=== PATIENT | male | born 1975 | race Caucasian/White ===

== ENCOUNTER 2016-12-16 13:04 | Emergency (ER) | payer MEDICAID, OTHER ==
[~2016-12-16] VITALS: Ht 167.6 cm; Wt 83.5 kg
[2016-12-16 13:14] VITALS: Ht 167.6 cm; Wt 83.5 kg
[2016-12-16 14:52] LABS: ADD SCAN DIFF NO
[2016-12-16 15:09] LABS: BASOPHIL # 0.1 10^3/ul (0.0-0.1); BASOPHILS % 0.4 % (0.0-2.0); EOSINOPHILS # 0.3 10^3/ul (0.0-0.5); EOSINOPHILS % 2.1 % (0.0-7.0); HEMOGLOBIN 14.1 g/dl (14.0-18.0); LYMPHOCYTES # 2.6 10^3/ul (0.8-2.9); LYMPHOCYTES % 21.9 % (15.0-51.0); MEAN CORPUSCULAR HEMOGLOBIN 29.1 pg (29.0-33.0); MEAN CORPUSCULAR VOLUME 90.7 fl (82.0-101.0); MEAN PLATELET VOLUME 9.4 fl (7.4-10.4); MONOCYTE # 0.7 10^3/ul (0.3-0.9); NEUTROPHIL # 8.1 10^3/ul (1.6-7.5); NEUTROPHILS % 69.2 % (39.0-77.0); PLATELET COUNT 293 10^3/UL (140-415); RED BLOOD COUNT 4.85 10^6/ul (4.70-6.10); RED CELL DISTRIBUTION WIDTH 13.8 % (11.5-14.5); WHITE BLOOD COUNT 11.7 10^3/ul (4.8-10.8)
[2016-12-16 15:13] LABS: ADD UMIC NO; UR ASCORBIC ACID NEGATIVE (NEGATIVE); UR BILIRUBIN (Dip) NEGATIVE (NEGATIVE); UR BLOOD (Dip) NEGATIVE (NEGATIVE); UR CLARITY CLEAR (CLEAR); UR COLOR YELLOW (YELLOW); UR GLUCOSE (Dip) NEGATIVE (NEGATIVE); UR KETONES (Dip) NEGATIVE (NEGATIVE); UR LEUKOCYTE ESTERASE (Dip) NEGATIVE Leu/ul (NEGATIVE); UR NITRITE (Dip) NEGATIVE (NEGATIVE); UR SPECIFIC GRAVITY (Dip) 1.019 (1.003-1.030); UR TOTAL PROTEIN (Dip) NEGATIVE (NEGATIVE); UR UROBILINOGEN (Dip) NEGATIVE (NEGATIVE)
[2016-12-16 15:18] LABS: ALBUMIN 4.8 g/dl (3.3-4.9); ALBUMIN/GLOBULIN RATIO 1.37; BILIRUBIN,INDIRECT 0.3 mg/dl (0-1.1); BILIRUBIN,TOTAL 0.3 mg/dl (0.2-1.3); CALCIUM 9.4 mg/dl (8.4-10.2); CREATININE 0.81 mg/dl (0.61-1.24); TOTAL PROTEIN 8.3 g/dl (6.1-8.1)
--- NOTE | 2016-12-16 15:46 | RADRPT ---
PROCEDURE: CT Abdomen and Pelvis without contrast. CLINICAL INDICATION: Abdominal pain TECHNIQUE: CT scan of the abdomen and pelvis without contrast was performed. The patient was scann ed without intravenous contrast. Coronal and sagittal reformatted images were obtained from the axi al source images. Use of iterative reconstruction technique was employed. Images were reviewed on a high-resolution PACS workstation. images. The calculated radiation dose measures 697.08 mGy centimet ers. The CTDI measures 11.78 mGy. One or more of the following dose reduction techniques were used: - Automated exposure control. - Adjustment of the mA and/or kV according to patient size . - Use of iterative reconstruction technique. Images were reviewed on a high-resolution PACS workstation COMPARISON: None. FINDINGS: CT abdomen: The lung bases are clear. The heart size is normal, without pericardial thickening or effusion. Th e liver is normal in size and density without focal mass or intrahepatic biliary dilatation. The sp pito is normal in size and homogeneous in density. The stomach is partially collapsed, but is gross ly unremarkable. The pancreas as visualized is normal. The gallbladder and biliary tree are unrem arkable and there is no evidence for biliary dilatation. The adrenal glands are symmetric and dante l. The kidneys are symmetrically unremarkable as well. No renal calculus or obstructive uropathy o r mass lesion is seen. The aorta is of normal caliber. Aortic vascular calcifications are present. There is no retroperit guerrier lymphadenopathy. The vernon hepatis region is clear. The small bowel is within normal limits. CT pelvis: The small bowel loops situated within the pelvis are unremarkable. The pelvic organs are normal. T he pelvic sidewalls and inguinal regions are clear. The sigmoid colon and rectum are remarkable for sigmoid diverticulosis. There is small focal area of acute diverticulitis noted within the distal s igmoid colon contained microperforation seen on the axial series image 134. There is moderate stran ding and surrounding soft tissues. The surrounding osseous structures are remarkable for degenerative spondylosis of the spine. No ost eolytic or osteoblastic lesion is detected. IMPRESSION: 1. Sigmoid diverticulosis present with a focal area of acute diverticulitis at the distal sigmoid c olon noting contained perforation in this region. No larger drainable fluid collection is seen at t his time. 2. No evidence for a small bowel obstruction. 3. Atherosclerotic vascular calcifications. RPTAT: PP .Vinicio Gregg MD, MD Date Time Electronically viewed and signed by .Vinicio Gregg MD, MD on 12/16/2016 15:45 .d/
[2016-12-16] MEDS ORDERED: metroNIDAZOLE 500 MG TAB PO ONE (16:00)
[2016-12-16] MEDS ORDERED: CIPROFLOXACIN 500 MG TAB PO ONE (16:00)
[2016-12-16] MEDS ORDERED: DOCU-144 PO (16:01)
[2016-12-16] MEDS ORDERED: METR500T PO (16:01)
[2016-12-16] MEDS ORDERED: CIPR500T4 PO (16:01)
--- NOTE | 2016-12-16 16:15 | ERD ---
ER Documentation Chief Complaint Date/Time DATE: 12/16/16 TIME: 16:11 Chief Complaint diffuse abd pain with diarrhea for 3-4 days denies n/v and back pain HPI Patient is a 41-year-old male who presents with lower abdominal pain that he has had for about 4 days. He denies any nausea vomiting but does admit to diarrhea. Denies any dysuria hematuria or urinary frequency. Pain is worse after eating. Pain started out in the lower abdomen but since has been radiating upwards. He denies any dysuria hematuria or increased urinary frequency. ROS All systems reviewed and are negative except as per history of present illness. Medications Home Meds Active Scripts Metronidazole* (Flagyl*) 500 Mg Tablet, 500 MG PO TID for 7 Days, TAB Prov:SWETA CHANCE PA-C 12/16/16 Docusate Sodium* (Colace*) 100 Mg Capsule, 100 MG PO TID, #30 CAP Prov:SWETA CHANCE PA-C 12/16/16 Ciprofloxacin Hcl* (Ciprofloxacin Hcl*) 500 Mg Tablet, 500 MG PO BID for 7 Days , TAB Prov:SWETA CHANCE PA-C 12/16/16 Allergies Allergies: Coded Allergies: No Known Allergy (Unverified , 12/01/13) PMhx/Soc History of Surgery: No Anesthesia Reaction: No Hx Neurological Disorder: No Hx Respiratory Disorders: No Hx Cardiac Disorders: No Hx Psychiatric Problems: No Hx Miscellaneous Medical Probl: No Hx Alcohol Use: No Hx Substance Use: No Hx Tobacco Use: No Smoking Status: Never smoker FmHx Family History: No diabetes Physical Exam Vitals Vital Signs Date Time Temp Pulse Resp B/P Pulse Ox O2 Delivery O2 Flow Rate FiO2 12/16/16 13:14 99.2 85 20 144/84 98 Physical Exam General: well developed, well nourished, alert, nontoxic, no distress Head: normocephalic, atraumatic Eyes: PERRL, normal conjunctiva Neck: Supple, nontender, no lymphadenopathy, no midline tenderness Respiratory: Clear to auscaultation bilaterally, speaks in full sentences, no use of accesory muscles or labored breathing, no rales, ronchi, or wheezing Cardiovascular: RRR, No murmurs GI: soft, mild left lower quadrant tenderness, non distended, negative murphys sign, negative mcburneys point tenderness, no cva tenderness bilaterally, no rebound or guarding Back: no midline tenderness, no step offs or bony abnormalities, sensation to light touch in tact Result Diagram: 12/16/16 1418 12/16/16 1418 Results 24 hrs Laboratory Tests Test 12/16/16 14:18 White Blood Count 11.710^3/ul Red Blood Count 4.8510^6/ul Hemoglobin 14.1g/dl Hematocrit 44.0% Mean Corpuscular Volume 90.7fl Mean Corpuscular Hemoglobin 29.1pg Mean Corpuscular Hemoglobin Concent 32.0g/dl Red Cell Distribution Width 13.8% Platelet Count 38361^3/UL Mean Platelet Volume 9.4fl Neutrophils % 69.2% Lymphocytes % 21.9% Monocytes % 6.0% Eosinophils % 2.1% Basophils % 0.4% Nucleated Red Blood Cells % 0.0/100WBC Neutrophils # 8.110^3/ul Lymphocytes # 2.610^3/ul Monocytes # 0.710^3/ul Eosinophils # 0.310^3/ul Basophils # 0.110^3/ul Nucleated Red Blood Cells # 0.010^3/ul Urine Color YELLOW Urine Clarity CLEAR Urine pH 7.0 Urine Specific [place] 1.019 Urine Ketones NEGATIVEmg/dL Urine Nitrite NEGATIVEmg/dL Urine Bilirubin NEGATIVEmg/dL Urine Urobilinogen NEGATIVEmg/dL Urine Leukocyte Esterase NEGATIVELeu/ul Urine Hemoglobin NEGATIVEmg/dL Urine Glucose NEGATIVEmg/dL Urine Total Protein NEGATIVEmg/dl Sodium Level 139mmol/L Potassium Level 4.0mmol/L Chloride Level 101mmol/L Carbon Dioxide Level 29mmol/L Anion Gap 13 Blood Urea Nitrogen 13mg/dl Creatinine 0.81mg/dl Glucose Level 97mg/dl Calcium Level 9.4mg/dl Total Bilirubin 0.3mg/dl Direct Bilirubin 0.00mg/dl Indirect Bilirubin 0.3mg/dl Aspartate Amino Transf (AST/SGOT) 26IU/L Alanine Aminotransferase (ALT/SGPT) 43IU/L Alkaline Phosphatase 84IU/L Total Protein 8.3g/dl Albumin 4.8g/dl Globulin 3.50g/dl Albumin/Globulin Ratio 1.37 Lipase 60U/L Current Medications Medications (Trade) Dose Ordered Sig/Gregg Route PRN Reason Start Time Stop Time Status Last Admin Dose Admin Ciprofloxacin (Cipro) 500 mg ONCE ONCE PO 12/16/16 16:00 12/16/16 16:01 DC Metronidazole (Flagyl) 500 mg ONCE ONCE PO 12/16/16 16:00 12/16/16 16:01 DC Procedures/MDM 41-year-old male presents with abdominal pain. He is well-appearing in no distress. He is afebrile. Labs are unremarkable but CT scan does show evidence of diverticulitis and he will be treated with Cipro and Flagyl and he is given the first dose here in the emergency room before being discharged with both of those as well as Colace. Recommended this patient follow up with her primary care doctor within 48 hours or return to the emergency room for any worsening of symptoms. However this time I do believe there is suitable for outpatient management. I answered all their questions and they agreed with the plan and were discharged home. Departure Diagnosis: Primary Impression: Diverticulitis Condition: Stable Patient Instructions: Diverticulitis Additional Instructions: Llame al doctor LEO y sari stephanie SHARONDA PARA DENTRO DE 1-2 SIMPSON.Dgale a la secretaria que nosotros le instruimos hacer esta sharonda.Avise o llame si trinh condicin se empeora antes de la sharonda. Regresa aqui si peor o no mejor. SWETA CHANCE PA-C Dec 16, 2016 16:15
== END 2016-12-16 16:37 | disposition home or self-care (01) ==
LOC: FTE 13:04
DX: K57.92 Diverticulitis of intestine, part unspecified, without perforation or abscess without bleeding (principal)
CPT/HCPCS: 74176; 80053; 81003; 83690; 85025; Z7610; 36415

== ENCOUNTER 2018-03-23 23:50 | Emergency (ER) | END 2018-03-24 03:07 | disposition home or self-care (01) ==